=== PATIENT | female | born 1985 | race Caucasian/White ===

== ENCOUNTER 2019-05-01 08:34 | Outpatient (CLI) | payer MEDICAID ==
[~2019-05-01] VITALS: Ht 157.5 cm; Wt 77.0 kg
[2019-05-01] MEDS ORDERED: PNV11TAB PO (08:50)
[2019-05-01 08:51] VITALS: BP 119/57; PULSE 71; RESP 19; Ht 157.5 cm; Wt 77.0 kg
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
== END 2019-05-01 11:47 | disposition home or self-care (01) ==
LOC: OBT 08:34 → L-D 08:34 → OBT 11:47
PROVIDERS: ATTEND Specialist
DX: O9A.212 Injury, poisoning and certain other consequences of external causes complicating pregnancy, second trimester (principal); R10.31 Right lower quadrant pain; Z3A.27 27 weeks gestation of pregnancy; V49.9XXA Car occupant (driver) (passenger) injured in unspecified traffic accident, initial encounter; Y92.410 Unspecified street and highway as the place of occurrence of the external cause
CPT/HCPCS: 76817; 76818; 85460; 86900; 86901; Z7500; G0463